=== PATIENT | female | born 1955 | race Caucasian/White ===

== ENCOUNTER → 2021-09-23 | Outpatient (CLI) | payer OTHER | LOC: HYPER 14:17 | PROVIDERS: ATTEND Emergency Medicine | DX: H91.22 Sudden idiopathic hearing loss, left ear (principal); S52.92XA Unspecified fracture of left forearm, initial encounter for closed fracture; E21.3 Hyperparathyroidism, unspecified; J00 Acute nasopharyngitis [common cold]; D68.51 Activated protein C resistance; G43.011 Migraine without aura, intractable, with status migrainosus; Z87.891 Personal history of nicotine dependence; Z79.82 Long term (current) use of aspirin; Z79.899 Other long term (current) drug therapy; Z90.49 Acquired absence of other specified parts of digestive tract; X58.XXXA Exposure to other specified factors, initial encounter; Y93.89 Activity, other specified; Y92.89 Other specified places as the place of occurrence of the external cause; Y99.8 Other external cause status ==